=== PATIENT | female | born 1960 | race African-American/Black ===

== ENCOUNTER 2019-12-14 21:59 | Inpatient (IN) | payer MEDICAID, OTHER ==
[~2019-12-14] VITALS: Ht 165.1 cm; Wt 65.8 kg
[2019-12-14 21:45] VITALS: BP 120/68
[2019-12-14] MEDS ORDERED: MORPHINE SULF INJ 2 MG/ML SYRINGE 1ML IV PRN (22:45)
[2019-12-14] MEDS ORDERED: DEXTROSE (50%) 50ML SYRG IV PRN (22:45)
[2019-12-14] MEDS ORDERED: NITROGLYCERIN 0.4 MG SL TAB SL PRN (22:45)
[2019-12-14] MEDS ORDERED: hydrALAZINE HCL 10 MG TAB PO PRN (22:45)
--- NOTE | 2019-12-14 22:45 | NUR ---
Direct Admit Note OBDULIA CALIX admitted to Telemetry/MS unit as a direct admit per MD order. Patient oriented to Ollie Velasquez, primary RN, unit, room, bed, and unit policies regarding patient care and visiting hours. Patient now on continuous telemetry monitoring, tele box # [id number] and telemetry reading on arrival to unit is SR 77. Patient placed on bedside oxygen, weighed by bedscale and encouraged to call if they need something. All questions and concerns addressed, patient verbalized understanding. MD notified of patients arrival and admit orders received.
[2019-12-15] MEDS ORDERED: OMEP20TA PO (00:47)
[2019-12-15] MEDS ORDERED: FURO80TA3 PO (00:47)
[2019-12-15] MEDS ORDERED: POTA10TA51 PO (00:47)
[2019-12-15] MEDS ORDERED: FER325T PO (00:47)
[2019-12-15] MEDS ORDERED: ALBUAER3 IN (00:47)
[2019-12-15] MEDS ORDERED: AMLO10TA13 PO (00:47)
[2019-12-15] MEDS ORDERED: BENA20TA14 PO (00:47)
[2019-12-15] MEDS ORDERED: MELO1TAB56 PO ×2 (00:47→00:51)
[2019-12-15] MEDS ORDERED: MET50T PO (00:47)
[2019-12-15] MEDS ORDERED: BACL10TA PO (00:51)
[2019-12-15 06:00] VITALS: BP 110/60
[2019-12-15] MEDS: HEPARIN SODIUM (PORCINE) 5000 UNITS/ML 1ML VIAL SC SCH ×3 (06:00→22:00)
[2019-12-15] MEDS: FERROUS SULFATE 325 MG TAB PO SCH ×3 (06:00→22:00)
[2019-12-15 06:34] LABS: Basophils # (auto) 0.1 10 ^3/uL (0-0.2); Basophils % (auto) 1.3 % (0.0-2.0); Eosinophils # (auto) 0.2 10 ^3/uL (0-0.8); Lymphocytes # (auto) 0.5 10 ^3/uL (0.4-5.4); Neutrophils # (auto) 3.5 10 ^3/uL (1.6-8.6); Red Blood Cells 3.95 10^6/uL (4.0-5.20)
[2019-12-15 06:36] LABS: Eosinophils % (auto) 4.7 % (0.0-7.0); Hematocrit 32.3 % (36.0-46.0); Lymphocytes % (auto) 9.5 % (10.0-50.0); Mean Corpuscular Hemoglobin 25.2 pg (28.0-32.0); Mean Corpuscular Hgb Conc. 30.9 g/dL (32.0-36.0); Mean Corpuscular Volume 81.6 fL (80.0-100.0); Monocytes # (auto) 0.6 10 ^3/uL (0-1.3); Monocytes % (auto) 12.8 % (0.0-12.0); Neutrophils % (auto) 71.7 % (37.0-80.0); Nucleated Red Blood Cells % 0.1 %; Platelet Count (auto) 236 10^3/uL (140-450); Red Cell Distribution Width 17.6 % (11.8-14.3); White Blood Cell 4.9 10^3/uL (4.4-10.8)
[2019-12-15] MEDS: InsuLIN REG 1unit/0.01ml Soln (100units/ml) SC SCH ×4 (06:55→22:00)
[2019-12-15 06:56] LABS: INR 1.16 (0.9-1.15)
[2019-12-15] MEDS: ACCU-CHEK COMFORT CURVE STRIP VI SCH ×4 (06:56→22:00)
[2019-12-15 06:57] LABS: Potassium 3.6 mmol/L (3.5-5.1)
[2019-12-15] MEDS ORDERED: InsuLIN REG 1unit/0.01ml Soln (100units/ml) SC SCH (07:00)
[2019-12-15] MEDS ORDERED: INSULIN LISPRO (HUMAN) 100 UNITS/ML ML SC SCH (07:00)
[2019-12-15 07:01] LABS: BUN/Creatinine Ratio 4.9
--- NOTE | 2019-12-15 07:30 | NUR ---
Opening Shift Note RECEIVED REPORT FROM NOC RN. Assumed care of patient, awake and alert. PATIENT ON OXYGEN AT 1 LPM VIA NASAL CANNULA WITH no S/S of distress/SOB or pain. BED IN LOWEST, LOCKED POSITION WITH SIDERAILS UP x2 AND CALL LIGHT WITHIN REACH. Instructed on POC and to call for assist PRN, will continue to monitor for changes Q1hr and PRN.
[2019-12-15 09:00] VITALS: BP 126/72
[2019-12-15] MEDS: cefTRIAXone 1GM/50ML D5W 50 ML IV SCH (09:34)
[2019-12-15] MEDS: AMIODARONE HCL 200 MG TAB PO SCH ×2 (10:14→22:00)
[2019-12-15] MEDS: ASPirin-EC 81 mg tab PO SCH (10:14)
[2019-12-15] MEDS: FUROSEMIDE 40 MG TAB PO SCH (10:14)
[2019-12-15] MEDS: METOPROLOL TARTRATE 50 MG TAB PO SCH ×2 (10:15→22:00)
[2019-12-15] MEDS: amLODIPine BESYLATE 5 MG TAB PO SCH (10:15)
[2019-12-15 12:27] LABS: Phosphorus 5.2 mg/dL (2.5-4.90); Uric Acid 3.3 mg/dL (2.6-6.0)
[2019-12-15 13:00] VITALS: BP 124/61
--- NOTE | 2019-12-15 15:25 | NUR ---
CALLED ACCORDION TUNER TO ADVISE OF LEFT HEART CATH TOMORROW WITH DR. MILES.
[2019-12-15 17:00] VITALS: BP 102/58
[2019-12-15 22:00] VITALS: BP 102/59
[2019-12-15] MEDS: FAMOTIDINE (10MG/ML) 2ML VL IV SCH (22:00)
[2019-12-15] MEDS: ATORVASTATIN 20 MG TAB PO SCH (22:00)
[2019-12-16 05:55] VITALS: BP 126/73
[2019-12-16] MEDS: HEPARIN SODIUM (PORCINE) 5000 UNITS/ML 1ML VIAL SC SCH ×3 (06:00→22:31)
[2019-12-16] MEDS: FERROUS SULFATE 325 MG TAB PO SCH ×3 (06:14→22:38)
[2019-12-16] MEDS: ACCU-CHEK COMFORT CURVE STRIP VI SCH ×4 (06:14→23:04)
[2019-12-16] MEDS: InsuLIN REG 1unit/0.01ml Soln (100units/ml) SC SCH ×4 (06:15→23:04)
[2019-12-16 06:44] LABS: Basophils # (auto) 0.1 10 ^3/uL (0-0.2); Lymphocytes # (auto) 0.7 10 ^3/uL (0.4-5.4); Mean Corpuscular Hemoglobin 25.8 pg (28.0-32.0); Neutrophils # (auto) 2.8 10 ^3/uL (1.6-8.6); White Blood Cell 4.7 10^3/uL (4.4-10.8)
[2019-12-16 06:50] LABS: Basophils % (auto) 1.4 % (0.0-2.0); Eosinophils # (auto) 0.5 10 ^3/uL (0-0.8); Eosinophils % (auto) 10.2 % (0.0-7.0); Hematocrit 31.8 % (36.0-46.0); Hemoglobin 10.1 g/dL (12.2-16.2); Lymphocytes % (auto) 15.1 % (10.0-50.0); Mean Corpuscular Hgb Conc. 31.8 g/dL (32.0-36.0); Mean Corpuscular Volume 81.3 fL (80.0-100.0); Monocytes # (auto) 0.6 10 ^3/uL (0-1.3); Monocytes % (auto) 13.3 % (0.0-12.0); Nucleated Red Blood Cells % 0.1 %; Platelet Count (auto) 245 10^3/uL (140-450); Red Blood Cells 3.91 10^6/uL (4.0-5.20); Red Cell Distribution Width 17.4 % (11.8-14.3)
[2019-12-16] MEDS ORDERED: SODIUM CHL 0.9% 1000 ML BAG XX ONE (07:00)
[2019-12-16 07:02] LABS: Calcium 6.9 mg/dL (8.5-10.1); Magnesium 2.8 mg/dL (1.6-2.6); Potassium 3.9 mmol/L (3.5-5.1)
[2019-12-16 07:10] LABS: BUN/Creatinine Ratio 5.8
[2019-12-16 09:00] VITALS: BP 136/72
--- NOTE | 2019-12-16 09:07 | NUR ---
PT TAKEN TO SERVICE AGENT VIA BED. NO S/S OF DISTRESS. MUSEUM OR ZOO DIRECTOR AWARE OF HD POST PROCEDURE.
[2019-12-16] MEDS ORDERED: LIDOCAINE 2%HCL (LOCAL ANESTH.) INJ 20ML MDV ONE (09:21)
[2019-12-16] MEDS ORDERED: IODIXANOL 320MG/ML 100ML BTL IV ONE ×2 (09:21→10:58)
[2019-12-16] MEDS ORDERED: fentaNYL CITRATE 100 MCG/2 ML VL ONE (09:26)
[2019-12-16] MEDS ORDERED: HEPARIN SODIUM (PORCINE) 5000 UNITS/ML 1ML VIAL ONE (09:26)
[2019-12-16] MEDS ORDERED: VERAPAMIL 2.5MG/ML INJ 2ML VIAL IV ONE (09:26)
[2019-12-16] MEDS ORDERED: ANGIOMAX 250 MG VIAL IV ONE (09:26)
[2019-12-16] MEDS ORDERED: SODIUM CHL 0.9% 50 ML ONE (09:27)
[2019-12-16] MEDS ORDERED: MIDAZOLAM HCL 1MG/1ML-2 ML VIAL ONE (09:27)
[2019-12-16] MEDS: ASPirin-EC 81 mg tab PO SCH (10:00)
--- NOTE | 2019-12-16 10:28 | NUR ---
Midline Placement: Patient educated on need for midline placement. All risks and benefits explained and all questions and concerns addresses prior to procedure. 18g/10 cm midline inserted via right basilic vein using Ultrasound. Sterile technique utilized. Blood return obtained from the single lumen and flushed easily with NS using proper technique. Midline secured with saline lock; biodisc and occlusive dressing applied. laborer tree tapping BAILEE Garcia notified. Midline lot # [id number]
--- NOTE | 2019-12-16 11:17 | NUR ---
ss consult Per consult info on advanced directive. Patient has been provided with advanced directive. Addendum: 12/16/19 at 1117 by Michelle Martinez Amended: Links added.
[2019-12-16] MEDS ORDERED: TICAGRELOR 90 MG TAB ONE (11:30)
[2019-12-16] MEDS ORDERED: ASPirin 325 MG TAB ONE (11:31)
--- NOTE | 2019-12-16 11:42 | NUR ---
Patient brought to recovery via bed, report received from BAILEE Garcia and BAILEE Jesus. Patient is AO x 4, NAD noted. Right radial site has scant blood, sterile gauze in place to monitor bleeding, no s/s of hematoma formation. Vasc Band is in place, positive circulation, movement and sensation noted to BUE. Patient denies pain at this time. Verbalizes understanding to post-procedure care instructions.
--- NOTE | 2019-12-16 11:57 | NUR ---
Patient is awake in bed, breaths are even and unlabored. Right radial site has no s/s of bleeding or hematoma formation. NAD noted.
--- NOTE | 2019-12-16 12:27 | NUR ---
Report given to BAILEE Rutledge.
[2019-12-16] MEDS: METOPROLOL TARTRATE 50 MG TAB PO SCH ×3 (12:39→23:50)
[2019-12-16] MEDS: AMIODARONE HCL 200 MG TAB PO SCH ×2 (12:40→22:38)
[2019-12-16] MEDS: amLODIPine BESYLATE 5 MG TAB PO SCH (12:40)
--- NOTE | 2019-12-16 12:59 | NUR ---
phone report given to primary RN, Carroll
--- NOTE | 2019-12-16 13:17 | NUR ---
Patient taken to telemetry unit by this RN and BAILEE Garcia. school bus monitor in place, NAD noted upon departure. Primary RNCarroll present at bedside to witness right radial site, benign no s/s of bleeding or hematoma formation. Care endorsed to BAILEE Hodges.
--- NOTE | 2019-12-16 13:35 | NUR ---
PT ARRIVED TO UNIT VIA BED. AWAKE, ALERT, ORIENTED x4 DENIES ANY PAIN AT MOMENT. TR BAND IN PLACE TO RIGHT WRIST, ASYMPTOMATIC AT MOMENT. PATIENT DENIES TINGLING, NUMBNESS. SKIN WARM TO TOUCH, +2 PULSES TO EXTREMITY. TR BAND DEFLATION PER INSTRUCTIONS. CALL LIGHT WITHIN REACH. WILL CONTINUE TO MONITOR.
--- NOTE | 2019-12-16 13:45 | NUR ---
RFA#20 IV DC, CATHETER INTACT, NO PHLEBITIS. PT TOLERATED PROCEDURE WELL.
[2019-12-16] MEDS: cefTRIAXone 1GM/50ML D5W 50 ML IV SCH (14:10)
[2019-12-16] MEDS: FUROSEMIDE 40 MG TAB PO SCH (14:11)
--- NOTE | 2019-12-16 14:45 | NUR ---
TR BAND DEFLATED PER INSTRUCTIONS, RIGHT WRIST SITE INTACT, BAND REMOVED PLACED AT BEDSIDE, PT AWARE TO KEEP BAND AND SYRINGE AT BEDSIDE. DRY DRESSING WITH TEGADERM PLACE AT SITE. NO BLEEDING AT MOMENT. SENSATION INTACT, SKIN WARM TO TOUCH, DENIES DISCOMFORT. CALL LIGHT WITHIN REACH.
--- NOTE | 2019-12-16 14:50 | NUR ---
DIALYSIS CENTER CALLED AND MADE AWARE, LHC DONE. MADE AWARE OF DIALYSIS NEED.
[2019-12-16] MEDS ORDERED: METOPROLOL TARTRATE 50 MG TAB PO ONE (16:15)
[2019-12-16 17:00] VITALS: BP 143/89
--- NOTE | 2019-12-16 19:40 | NUR ---
Opening Shift Note Assumed care of patient, awake and alert. No S/S of distress/SOB or pain. Instructed on POC and to call for assist PRN, will continue to monitor for changes Q1hr and PRN. Bed locked and in the lowest position. Call light within reach
[2019-12-16 20:00] VITALS: BP 111/35
[2019-12-16] MEDS ORDERED: EPOETIN ALFA 10,000 UNIT/1 ML VIAL SC ONE (21:00)
[2019-12-16 22:00] VITALS: BP 111/35
[2019-12-16] MEDS: FAMOTIDINE (10MG/ML) 2ML VL IV SCH (22:37)
[2019-12-16] MEDS: ATORVASTATIN 20 MG TAB PO SCH (22:59)
[2019-12-16] MEDS: TICAGRELOR 90 MG TAB PO SCH (23:25)
[2019-12-17 05:50] VITALS: BP 129/49
[2019-12-17] MEDS: FERROUS SULFATE 325 MG TAB PO SCH ×3 (05:52→22:25)
[2019-12-17] MEDS: HEPARIN SODIUM (PORCINE) 5000 UNITS/ML 1ML VIAL SC SCH ×3 (05:55→22:26)
[2019-12-17] MEDS: ACCU-CHEK COMFORT CURVE STRIP VI SCH ×4 (06:44→22:00)
[2019-12-17] MEDS: InsuLIN REG 1unit/0.01ml Soln (100units/ml) SC SCH ×4 (06:48→22:00)
[2019-12-17 07:19] LABS: Basophils # (auto) 0.1 10 ^3/uL (0-0.2); Basophils % (auto) 1.1 % (0.0-2.0); Eosinophils # (auto) 0.3 10 ^3/uL (0-0.8); Mean Corpuscular Volume 80.7 fL (80.0-100.0); Monocytes # (auto) 0.8 10 ^3/uL (0-1.3); Neutrophils # (auto) 5.6 10 ^3/uL (1.6-8.6); White Blood Cell 7.6 10^3/uL (4.4-10.8)
[2019-12-17 07:23] LABS: Eosinophils % (auto) 4.1 % (0.0-7.0); Hematocrit 30.7 % (36.0-46.0); Hemoglobin 9.8 g/dL (12.2-16.2); Lymphocytes # (auto) 0.8 10 ^3/uL (0.4-5.4); Lymphocytes % (auto) 10.5 % (10.0-50.0); Mean Corpuscular Hemoglobin 25.7 pg (28.0-32.0); Mean Corpuscular Hgb Conc. 31.8 g/dL (32.0-36.0); Monocytes % (auto) 10.4 % (0.0-12.0); Neutrophils % (auto) 73.9 % (37.0-80.0); Platelet Count (auto) 270 10^3/uL (140-450); Red Blood Cells 3.81 10^6/uL (4.0-5.20); Red Cell Distribution Width 17.1 % (11.8-14.3)
--- NOTE | 2019-12-17 07:30 | NUR ---
RECEIVED REPORT FROM NIGHT NURSE. PATIENT RESTING IN BED, NO DISTRESS NOTED. WILL CONTINUE TO MONITOR.
[2019-12-17 07:51] LABS: Potassium 3.4 mmol/L (3.5-5.1)
--- NOTE | 2019-12-17 07:55 | NUR ---
DOCTOR MILES AT BEDSIDE.
[2019-12-17 07:56] LABS: BUN/Creatinine Ratio 4.7; Calcium 7.5 mg/dL (8.5-10.1)
[2019-12-17 09:00] VITALS: BP 154/58
[2019-12-17] MEDS: TICAGRELOR 90 MG TAB PO SCH ×2 (10:21→22:24)
[2019-12-17] MEDS: cefTRIAXone 1GM/50ML D5W 50 ML IV SCH (10:21)
[2019-12-17] MEDS: ASPirin-EC 81 mg tab PO SCH (10:22)
[2019-12-17] MEDS: FUROSEMIDE 40 MG TAB PO SCH (10:22)
[2019-12-17] MEDS: amLODIPine BESYLATE 5 MG TAB PO SCH (10:23)
[2019-12-17] MEDS: AMIODARONE HCL 200 MG TAB PO SCH ×2 (10:23→22:25)
--- NOTE | 2019-12-17 12:18 | NUR ---
I faxed order for life vest to [employer].
[2019-12-17 13:00] VITALS: BP 144/75
--- NOTE | 2019-12-17 16:29 | NUR ---
Discharge instructions given as ordered. Encourage to follow up with PMD as instructed. All questions and concerns addressed. Patient verbalized understanding. Medication reconciliation form completed and copy given to patient. IV removed with catheter intact, pressure dressing applied. Telemetry unit returned to ICU. Patient taken to vehicle via wheelchair with all personal belongings, accompanied by staff member. No distress noted at time of departure. Addendum: 12/17/19 at 1908 by Norma Ruiz RN WRONG PATIENT. PLEASE DISREGARD NOTE.
[2019-12-17] MEDS ORDERED: HEPARIN SODIUM (PORCINE) 5000 UNITS/ML 1ML VIAL ONE (16:43)
[2019-12-17 17:13] VITALS: BP 107/59
--- NOTE | 2019-12-17 19:00 | NUR ---
DR. TOWNSEND PLEASE CALL DR. TOWNSEND ON 12/17 BEFORE DISCHARGING PATIENT. PATIENT OK TO D/C AFTER [employer] VE[employer]. PATIENT TO HAVE BRILINTA/ ASPIRIN IN HAND BEFORE DISCHARGE.
[2019-12-17 21:56] VITALS: BP 122/55
[2019-12-17] MEDS: FAMOTIDINE (10MG/ML) 2ML VL IV SCH (22:24)
[2019-12-17] MEDS: ATORVASTATIN 20 MG TAB PO SCH (22:25)
[2019-12-17] MEDS: METOPROLOL TARTRATE 50 MG TAB PO SCH (22:25)
[2019-12-18] MEDS: HEPARIN SODIUM (PORCINE) 5000 UNITS/ML 1ML VIAL SC SCH ×3 (06:29→21:35)
[2019-12-18] MEDS: FERROUS SULFATE 325 MG TAB PO SCH ×3 (06:29→21:33)
[2019-12-18 06:50] LABS: Basophils # (auto) 0.1 10 ^3/uL (0-0.2); Basophils % (auto) 1.4 % (0.0-2.0); Eosinophils # (auto) 0.5 10 ^3/uL (0-0.8); Hematocrit 29.3 % (36.0-46.0); Hemoglobin 9.3 g/dL (12.2-16.2); Lymphocytes # (auto) 0.8 10 ^3/uL (0.4-5.4); Lymphocytes % (auto) 11.7 % (10.0-50.0); Mean Corpuscular Hemoglobin 25.7 pg (28.0-32.0); Mean Corpuscular Hgb Conc. 31.7 g/dL (32.0-36.0); Monocytes % (auto) 13.8 % (0.0-12.0); Neutrophils # (auto) 4.7 10 ^3/uL (1.6-8.6); Neutrophils % (auto) 66.1 % (37.0-80.0); Nucleated Red Blood Cells % 0.2 %; Platelet Count (auto) 296 10^3/uL (140-450); Red Blood Cells 3.61 10^6/uL (4.0-5.20); Red Cell Distribution Width 17.4 % (11.8-14.3); White Blood Cell 7.1 10^3/uL (4.4-10.8)
[2019-12-18] MEDS: ACCU-CHEK COMFORT CURVE STRIP VI SCH ×4 (06:51→22:14)
[2019-12-18] MEDS: InsuLIN REG 1unit/0.01ml Soln (100units/ml) SC SCH ×4 (06:53→22:15)
[2019-12-18 06:57] LABS: BUN/Creatinine Ratio 5.2; Calcium 7.5 mg/dL (8.5-10.1); Potassium 4.1 mmol/L (3.5-5.1)
[2019-12-18 07:00] LABS: % Iron Saturation 22.1 % (15-50)
[2019-12-18] MEDS ORDERED: SODIUM CHL 0.9% 1000 ML BAG XX ONE (07:00)
--- NOTE | 2019-12-18 07:30 | NUR ---
RECEIVED REPORT FROM NIGHT NURSE. PATIENT RESTING IN BED, NO DISTRESS NOTED. WILL CONTINUE TO MONITOR.
[2019-12-18 09:00] VITALS: BP 146/66
--- NOTE | 2019-12-18 09:42 | NUR ---
D/C PLANNING SPOKE WITH DR. TOWNSEND BY PHONE. UPDATED HIM ON PATIENT STATUS AND D/C STATUS. CONTINUE WITH D/C TODAY, ONCE [employer] VEST IS DELIVERED/ ARRANGED, DIALYSIS IS COMPLETED AND PRESCRIPTIONS ARE IN HAND.
[2019-12-18] MEDS: TICAGRELOR 90 MG TAB PO SCH ×2 (10:10→21:33)
[2019-12-18] MEDS: FUROSEMIDE 40 MG TAB PO SCH (10:11)
[2019-12-18] MEDS: amLODIPine BESYLATE 5 MG TAB PO SCH (10:11)
[2019-12-18] MEDS: ASPirin-EC 81 mg tab PO SCH (10:12)
[2019-12-18] MEDS: AMIODARONE HCL 200 MG TAB PO SCH ×2 (10:12→21:34)
[2019-12-18] MEDS: METOPROLOL TARTRATE 50 MG TAB PO SCH ×2 (10:12→22:14)
--- NOTE | 2019-12-18 11:00 | NUR ---
I faxed life vest order to [facility]-requesting authorization for [employer].
--- NOTE | 2019-12-18 11:37 | NUR ---
I called discharge nurse Norah [phone] and left message asking for an update on the authorization request for [employer] vest-I let her know that patient is discharged home-pending [employer] life vest application/approval.
[2019-12-18 12:30] VITALS: BP 143/69
[2019-12-18] MEDS ORDERED: ATOR1TAB PO (13:48)
[2019-12-18] MEDS ORDERED: ASPI-543 PO (13:48)
[2019-12-18] MEDS ORDERED: TICA90TA PO (13:48)
--- NOTE | 2019-12-18 13:57 | NUR ---
Assessment Patient is a 59-year-old female, who is alert and oriented. Patient cognitive abilities are intact. Patient states that she can ambulate independently but receives assistance for ADLs. Patient son (Roderick Nunez [phone]) is her caregiver. Patient has history of diabetes type 2, insulin-dependent and end-stage renal disease. Patient is receiving social security as income. Patient states that she has dialysis treatment three times a week (Monday, and Monday chair time 3:55 am to 7:55 am) at [facility]. Patient will return [facility] post [facility] and her son Roderick will provide transportation post discharge. Patient states that her sons are her support system. Patient is receptive to receiving Advance Directive forms to read over with her sons. Discharge planning: Patient will return home post discharge. Patient will resume dialysis care at [facility], patient has all diabetic supplies to resume at home. will provide Advance Directive forms to patient. Additional post discharge needs are yet to be determine at this moment. Addendum: 12/18/19 at 1359 by LELE MARSH Amended: Links added.
--- NOTE | 2019-12-18 15:03 | NUR ---
BRILINTA/ ASPIRIN DISCHARGE PRESCRIPTION PRESCRIPTIONS FILLED BY [facility]. MEDICATIONS DELIVERED TO BEDSIDE. BRILINTA, ASPIRIN, ATORVASTATIN, AND AMIODARONE GIVEN TO PATIENT FOR DISCHARGE.
[2019-12-18] MEDS ORDERED: HEPARIN SODIUM (PORCINE) 5000 UNITS/ML 1ML VIAL ONE (15:48)
[2019-12-18 16:42] VITALS: BP 135/67
--- NOTE | 2019-12-18 16:50 | NUR ---
DIALYSIS NURSE AT BEDSIDE. DIALYSIS STARTED.
--- NOTE | 2019-12-18 17:08 | NUR ---
SPOKE WITH DOCTOR TOWNSEND, UPDATED HIM ON [employer] LIFE VEST DELIVERY AND DIALYSIS SCHEDULE.
--- NOTE | 2019-12-18 17:54 | NUR ---
[employer] VEST STATUS CALLED AND LEFT A VOICE MAIL FOR [place] ([phone]) IN REFERENCE TO [employer] VE[employer] AUTHORIZATION.
--- NOTE | 2019-12-18 19:30 | NUR ---
Opening Shift Note Assumed care of patient, awake and alert. No S/S of distress/SOB or pain. Instructed on POC and to call for assist PRN. Bed in lowest locked position, call light within reach, side rails up x2, fall precautions in place. Will continue to monitor for changes Q1hr and PRN.
--- NOTE | 2019-12-18 20:30 | NUR ---
Spoke with [employer] life vest rep Spoke with [employer] life vest parts counter representative, per parts counter representative, she will be in to deliver life vest soon.
[2019-12-18] MEDS ORDERED: EPOETIN ALFA 10,000 UNIT/1 ML VIAL SC ONE (21:00)
[2019-12-18] MEDS: ATORVASTATIN 20 MG TAB PO SCH (21:34)
--- NOTE | 2019-12-18 21:35 | NUR ---
Life vest Life vest territory representative at bedside.
--- NOTE | 2019-12-18 22:40 | NUR ---
Discharge Discharge instructions given as ordered. Encourage to follow up with PMD as instructed. All questions and concerns addressed. Patient verbalized understanding. Medication reconciliation form completed and copy given to patient. New prescription was filled and is at bedside. IV removed with catheter intact, pressure dressing applied. Telemetry unit returned to ICU. Patient taken to vehicle via wheelchair with all personal belongings, accompanied by staff. No distress noted at time of departure.
[2019-12-19] MEDS ORDERED: FAMOTIDINE (10MG/ML) 2ML VL IV SCH (11:00)
== END 2019-12-18 22:40 | disposition home or self-care (01) | DRG 174 ==
LOC: TELE-CENTR 21:59
PROVIDERS: ADMIT Specialist; ATTEND Internal Medicine
PROC: 027236Z Dilation of Coronary Artery, Three Arteries with Three Drug-eluting Intraluminal Devices, Percutaneous Approach (ICD-10-PCS; 2019-12-16)
PROC: 4A023N7 Measurement of Cardiac Sampling and Pressure, Left Heart, Percutaneous Approach (ICD-10-PCS; 2019-12-16)
PROC: B2111ZZ Fluoroscopy of Multiple Coronary Arteries using Low Osmolar Contrast (ICD-10-PCS; 2019-12-16)
PROC: 5A1D70Z Performance of Urinary Filtration, Intermittent, Less than 6 Hours Per Day (ICD-10-PCS; 2019-12-16)
PROC: B2151ZZ Fluoroscopy of Left Heart using Low Osmolar Contrast (ICD-10-PCS; 2019-12-16)
PROC: 5A1D70Z Performance of Urinary Filtration, Intermittent, Less than 6 Hours Per Day (ICD-10-PCS; principal; 2019-12-18)
DX: I21.4 Non-ST elevation (NSTEMI) myocardial infarction (principal); I13.2 Hypertensive heart and chronic kidney disease with heart failure and with stage 5 chronic kidney disease, or end stage renal disease; N18.6 End stage renal disease; I25.10 Atherosclerotic heart disease of native coronary artery without angina pectoris; D63.1 Anemia in chronic kidney disease; E83.39 Other disorders of phosphorus metabolism; E11.22 Type 2 diabetes mellitus with diabetic chronic kidney disease; E78.5 Hyperlipidemia, unspecified; I50.9 Heart failure, unspecified; Z79.4 Long term (current) use of insulin; Z83.3 Family history of diabetes mellitus; Z87.01 Personal history of pneumonia (recurrent); Z91.19 Patient's noncompliance with other medical treatment and regimen; Z99.2 Dependence on renal dialysis; Z86.74 Personal history of sudden cardiac arrest
CPT/HCPCS: 36415; 71045; 80048; 82306; 82728; 82962; 83036; 83540; 83550; 83735; 83880; 83970; 84100; 84484; 84550; 85025; 85610; 86850; 86900; 86901; 87081; 90935; 92928; 93005; 93306; 93458; 99152; 99153; C1874; G0378; J0696; J0885; J1815; J2250; J3490; Q9967